=== PATIENT | female | born 1985 | race Caucasian/White ===

== ENCOUNTER → 2023-02-16 10:54 | Outpatient (BNVA) | payer OTHER, SELFPAY | PROVIDERS: Visit Provider Family Medicine | DX: R39.9 Unspecified symptoms and signs involving the genitourinary system (principal); N30.00 Acute cystitis without hematuria | CPT/HCPCS: 81000 ==

== ENCOUNTER 2023-05-10 08:00 | Oncology outpatient (recurring) (ONCR) | payer OTHER, SELFPAY ==
[2023-05-02 09:23] LABS: Basophils % 0.8 %; Eosinophils # 0.1 10^3/uL (0.0-0.8); Eosinophils % 1.4 %; Hematocrit 30.1 % (36-47); Lymphocytes # 1.6 10^3/uL (0.8-4.8); Lymphocytes % 31.1 %; Mean Corpuscular HGB Conc 28.6 g/dL (30-55); Mean Corpuscular Hemoglobin 20.4 pg (27-33); Mean Corpuscular Volume 71.5 fl (85-98); Monocytes # 0.5 10^3/uL (0.2-0.9); Neutrophils # 2.87 10^3/uL (1.8-7.7); Neutrophils % 57.3 %; Nucleated Red Blood Cells % 0 %; Platelet Count 289 10^3/cmm (157-399); Red Blood Count 4.21 10^6/uL (3.85-5.65); Red Cell Distribution Width 14.6 % (12.1-15.1); Reticulocyte % 0.9 % (0.5-2.0); White Blood Count 5.01 10^3/uL (3.29-11.43)
[2023-05-02 09:56] LABS: LAB Peripheral Smear Sent for Review
[2023-05-02 10:16] LABS: Alanine Aminotransferase 10 U/L (0-33); Albumin Level 4.1 g/dL (3.5-5.2); Alkaline Phosphatase 47 U/L (35-105); Anion Gap 13.1 (5-19); Aspartate Amino Transferase 10 U/L (0-32); Blood Urea Nitrogen 15 mg/dL (6-20); Calcium 8.8 mg/dL (8.5-10.5); Carbon Dioxide 24 mmol/L (22-29); Chloride 103 mmol/L (98-107); Creatinine Clr Calc Pharmacy 125.2221; Ferritin 8 ng/mL (15-150); Globulin 3.4 g/dL (1.3-4.6); Glomerular Filtration Rate 111.9 mL/min (90-130); Glucose 76 mg/dL (65-115); Iron 22 ug/dL (37-145); Lactate Dehydrogenase 174 U/L (135-214); Osmolality Calculated 282 mOsm/kg (285-295); Percent Saturation 5.5 % (20-50); Potassium 4.1 mmol/L (3.5-5.1); Sodium 136 mmol/L (136-145); Thyroid Stimulating Hormone 1.73 uIU/mL (0.27-4.20); Total Bilirubin 1.2 mg/dL (0.15-1.2); Total Iron Binding Capacity 395 mcg/dl; Total Protein 7.5 g/dL (6.6-8.7); Unsaturated Iron Binding 373 ug/dL (112-347); Vitamin B12 460 pg/mL (232-1245)
[2023-05-02 10:18] LABS: Folate Level 12.8 ng/mL (4.8-37.3); Hepatitis A Antibody IgM Non-Reactive (Nonreactive); Hepatitis B Core AB, Total Non-Reactive (Nonreactive); Hepatitis B Surface Antigen Non-Reactive (Nonreactive); Hepatitis C Virus Antibody Non-Reactive (Nonreactive)
[2023-05-02 10:54] LABS: Hepatitis B Surface AB > 1000.0 (11.5-1000)
[2023-05-02 10:56] LABS: Free T4 Free Thyroxine 1.23 ng/dL (0.82-1.77)
[2023-05-05 11:09] LABS: Methylmalonic Acid 92 nmol/L (87-318)
[2023-05-06 12:34] LABS: Copper Level 126 mcg/dL (70-175)
[2023-05-07 11:50] LABS: Soluble Transferrin Receptor 4.34 mg/L (0.76-1.76)
[2023-05-10 08:05] VITALS: BP 115/75; PULSE 94; RESP 16; TEMP 36.3; O2SAT 99
[2023-05-10] MEDS: ferumoxytol (NON-ESRD) 510 MG in sodium chloride 0.9% (100 ml) 100 ML 351 MG IV (08:29)
[2023-05-10] MEDS: sodium chloride 0.9% 250 ML IV (09:02)
[2023-05-10 09:20] VITALS: BP 92/62; PULSE 69; RESP 16; TEMP 36.3; O2SAT 98
== END 2023-05-26 23:59 | disposition home or self-care (01) ==
PROVIDERS: Internal Medicine; Visit Provider Internal Medicine Medical Oncology
DX: D50.9 Iron deficiency anemia, unspecified (principal)
CPT/HCPCS: 36415; 80053; 82525; 82607; 82728; 82746; 83540; 83550; 83615; 83921; 84238; 84439; 84443; 85025; 85045; 86705; 86706; 86709; 86803; 87340; 96365; 99204; J7050; Q0138

== ENCOUNTER → 2023-05-16 07:56 | Outpatient (BNVA) | payer OTHER, SELFPAY | PROVIDERS: Visit Provider Nurse Practitioner Women's Health | DX: N94.6 Dysmenorrhea, unspecified (principal); D25.9 Leiomyoma of uterus, unspecified | CPT/HCPCS: 76830 ==

== ENCOUNTER → 2023-08-02 07:24 | Outpatient (BNVA) | payer OTHER, SELFPAY | PROVIDERS: Visit Provider Internal Medicine | DX: D62 Acute posthemorrhagic anemia (principal); N92.4 Excessive bleeding in the premenopausal period; Z79.899 Other long term (current) drug therapy | CPT/HCPCS: 99213 ==

== ENCOUNTER 2023-08-19 08:30 | Oncology outpatient (recurring) (ONCR) | payer OTHER, SELFPAY ==
[2023-08-02 07:54] VITALS: BMI 28.3
[2023-08-02 08:02] VITALS: BP 110/70; PULSE 81; RESP 18; TEMP 36.7
[2023-08-02 08:47] LABS: Basophils % 0.5 %; Eosinophils # 0.1 10^3/uL (0.0-0.8); Eosinophils % 1.3 %; Lymphocytes # 1.7 10^3/uL (0.8-4.8); Lymphocytes % 27.4 %; Mean Corpuscular HGB Conc 29.4 g/dL (30-55); Mean Corpuscular Hemoglobin 23.6 pg (27-33); Mean Corpuscular Volume 80.3 fl (85-98); Mean Platelet Volume 10.1 fL (7.4-10.4); Monocytes # 0.6 10^3/uL (0.2-0.9); Monocytes % 8.9 %; Neutrophils # 3.87 10^3/uL (1.8-7.7); Neutrophils % 61.7 %; Nucleated Red Blood Cells % 0 %; Platelet Count 329 10^3/cmm (157-399); Red Blood Count 4.36 10^6/uL (3.85-5.65); Red Cell Distribution Width 17.2 % (12.1-15.1); White Blood Count 6.27 10^3/uL (3.29-11.43)
[2023-08-02 09:11] LABS: Alanine Aminotransferase 12 U/L (0-33); Albumin Level 4.1 g/dL (3.5-5.2); Alkaline Phosphatase 59 U/L (35-105); Anion Gap 13.7 (5-19); Aspartate Amino Transferase 12 U/L (0-32); Blood Urea Nitrogen 16 mg/dL (6-20); Calcium 8.6 mg/dL (8.5-10.5); Carbon Dioxide 26 mmol/L (22-29); Chloride 103 mmol/L (98-107); Creatinine Clr Calc Pharmacy 107.9573; Globulin 3.4 g/dL (1.3-4.6); Glomerular Filtration Rate 93.6 mL/min (90-130); Glucose 82 mg/dL (65-115); Osmolality Calculated 288 mOsm/kg (285-295); Potassium 3.7 mmol/L (3.5-5.1); Sodium 139 mmol/L (136-145); Total Bilirubin 0.7 mg/dL (0.15-1.2); Total Protein 7.5 g/dL (6.6-8.7)
[2023-08-02 16:20] LABS: Ferritin 8 ng/mL (15-150); Iron 17 ug/dL (37-145); Percent Saturation 4.3 % (20-50); Total Iron Binding Capacity 388 mcg/dl; Unsaturated Iron Binding 371 ug/dL (112-347)
[2023-08-06 08:09] VITALS: BP 117/75; PULSE 74; RESP 16; TEMP 36.6; O2SAT 100
[2023-08-06] MEDS: sodium chloride 0.9% 250 ML 75 ML IV (08:44)
[2023-08-06] MEDS: ferumoxytol (NON-ESRD) 510 MG in sodium chloride 0.9% (100 ml) 100 ML 351 MG IV (08:44)
[2023-08-06 09:19] VITALS: BP 100/66; PULSE 92; RESP 18; TEMP 36.3; O2SAT 98
[2023-08-09 13:14] LABS: Soluble Transferrin Receptor 1.61 mg/L (0.76-1.76)
[2023-08-19 08:45] VITALS: BP 107/75; PULSE 58; RESP 18; TEMP 36.5; O2SAT 100
[2023-08-19] MEDS: ferumoxytol (NON-ESRD) 510 MG in sodium chloride 0.9% (100 ml) 100 ML 351 MG IV (09:07)
== END 2023-08-25 23:59 | disposition home or self-care (01) ==
PROVIDERS: Internal Medicine; Visit Provider Internal Medicine Medical Oncology
DX: Z53.9 Procedure and treatment not carried out, unspecified reason (principal); D50.9 Iron deficiency anemia, unspecified; Z79.899 Other long term (current) drug therapy
CPT/HCPCS: 36415; 80053; 82728; 83540; 83550; 84238; 85025; 85045; 96365; J7050; Q0138

== ENCOUNTER 2023-09-17 08:10 | Oncology outpatient (recurring) (ONCR) | payer OTHER, SELFPAY ==
[2023-09-17] MEDS: ferumoxytol (NON-ESRD) 510 MG in sodium chloride 0.9% (100 ml) 100 ML 351 MG IV (08:50)
[2023-09-17 08:53] VITALS: BP 99/67; PULSE 75; RESP 16; TEMP 36.3; O2SAT 98
[2023-09-17 09:17] VITALS: BP 109/68; PULSE 74; RESP 18; TEMP 36.5; O2SAT 100
== END 2023-09-25 23:59 | disposition home or self-care (01) ==
LOC: ONCMED 08:10
PROVIDERS: Visit Provider Internal Medicine Medical Oncology
DX: D50.9 Iron deficiency anemia, unspecified; Z79.899 Other long term (current) drug therapy
CPT/HCPCS: 96365; Q0138

== ENCOUNTER 2023-12-06 08:27 | Oncology outpatient (recurring) (ONCR) | payer OTHER, SELFPAY ==
[2023-12-06 08:57] LABS: Basophils % 0.4 %; Eosinophils # 0.1 10^3/uL (0.0-0.8); Hematocrit 39.4 % (36-47); Lymphocytes # 1.4 10^3/uL (0.8-4.8); Lymphocytes % 18.9 %; Mean Corpuscular Hemoglobin 28.8 pg (27-33); Mean Platelet Volume 9.9 fL (7.4-10.4); Monocytes # 0.5 10^3/uL (0.2-0.9); Monocytes % 6.6 %; Neutrophils % 72.7 %; Nucleated Red Blood Cells % 0 %; Platelet Count 269 10^3/cmm (157-399); Red Blood Count 4.38 10^6/uL (3.85-5.65); Red Cell Distribution Width 12.2 % (12.1-15.1); White Blood Count 7.29 10^3/uL (3.29-11.43)
[2023-12-06 09:14] LABS: Alanine Aminotransferase 15 U/L (0-33); Albumin Level 4.1 g/dL (3.5-5.2); Alkaline Phosphatase 51 U/L (35-105); Anion Gap 12.4 (5-19); Aspartate Amino Transferase 12 U/L (0-32); Blood Urea Nitrogen 17 mg/dL (6-20); Calcium 8.4 mg/dL (8.5-10.5); Carbon Dioxide 27 mmol/L (22-29); Chloride 103 mmol/L (98-107); Creatinine Clr Calc Pharmacy 109.6802; Ferritin 137 ng/mL (15-150); Glomerular Filtration Rate 93.2 mL/min (90-130); Glucose 109 mg/dL (65-115); Iron 91 ug/dL (37-145); Osmolality Calculated 288 mOsm/kg (285-295); Percent Saturation 41.1 % (20-50); Potassium 4.4 mmol/L (3.5-5.1); Sodium 138 mmol/L (136-145); Total Iron Binding Capacity 221 mcg/dl; Total Protein 7.1 g/dL (6.6-8.7); Unsaturated Iron Binding 130 ug/dL (112-347)
== END 2023-12-26 23:59 | disposition home or self-care (01) ==
PROVIDERS: Nurse Practitioner Family; Visit Provider Internal Medicine Medical Oncology
DX: D50.9 Iron deficiency anemia, unspecified
CPT/HCPCS: 36415; 80053; 82728; 83540; 83550; 85025; 99213

== ENCOUNTER 2024-04-17 08:00 | Oncology outpatient (recurring) (ONCR) | payer OTHER, SELFPAY ==
[2024-04-10 08:35] LABS: Basophils % 0.2 %; Eosinophils # 0.2 10^3/uL (0.0-0.8); Eosinophils % 1.8 %; Hematocrit 37.6 % (36-47); Lymphocytes # 2.4 10^3/uL (0.8-4.8); Mean Corpuscular HGB Conc 33.2 g/dL (30-55); Mean Corpuscular Hemoglobin 29.1 pg (27-33); Mean Corpuscular Volume 87.6 fl (85-98); Monocytes # 0.7 10^3/uL (0.2-0.9); Monocytes % 7.5 %; Neutrophils # 5.78 10^3/uL (1.8-7.7); Neutrophils % 62.9 %; Nucleated Red Blood Cells % 0 %; Platelet Count 386 10^3/cmm (157-399); Red Blood Count 4.29 10^6/uL (3.85-5.65); Red Cell Distribution Width 12.7 % (12.1-15.1)
[2024-04-10 08:54] LABS: Alanine Aminotransferase 14 U/L (0-33); Albumin Level 3.8 g/dL (3.5-5.2); Alkaline Phosphatase 67 U/L (35-105); Anion Gap 14.2 (5-19); Aspartate Amino Transferase 8 U/L (0-32); Blood Urea Nitrogen 9 mg/dL (6-20); Calcium 8.7 mg/dL (8.5-10.5); Carbon Dioxide 26 mmol/L (22-29); Chloride 101 mmol/L (98-107); Creatinine Clr Calc Pharmacy 109.6802; Ferritin 64 ng/mL (15-150); Glomerular Filtration Rate 93.2 mL/min (90-130); Glucose 86 mg/dL (65-115); Iron 40 ug/dL (37-145); Osmolality Calculated 282 mOsm/kg (285-295); Percent Saturation 18.1 % (20-50); Potassium 4.2 mmol/L (3.5-5.1); Sodium 137 mmol/L (136-145); Total Bilirubin 0.5 mg/dL (0.15-1.2); Total Iron Binding Capacity 220 mcg/dl; Total Protein 6.8 g/dL (6.6-8.7); Unsaturated Iron Binding 180 ug/dL (112-347)
[2024-04-17 08:30] VITALS: BP 102/68; PULSE 73; RESP 17; TEMP 36.6; O2SAT 100
[2024-04-17] MEDS: ferumoxytol (NON-ESRD) 510 MG in sodium chloride 0.9% (100 ml) 100 ML 351 MG IV (08:45)
== END 2024-04-24 23:59 | disposition home or self-care (01) ==
PROVIDERS: Nurse Practitioner Family; Visit Provider Internal Medicine
DX: D50.9 Iron deficiency anemia, unspecified; Z79.899 Other long term (current) drug therapy; Z53.9 Procedure and treatment not carried out, unspecified reason
CPT/HCPCS: 36415; 80053; 82728; 83540; 83550; 85025; 96365; 99214; Q0138

== ENCOUNTER 2024-07-17 07:51 | Oncology outpatient (recurring) (ONCR) | payer OTHER, SELFPAY ==
[2024-07-17 08:15] LABS: Basophils % 0.6 %; Eosinophils # 0.1 10^3/uL (0.0-0.8); Eosinophils % 2.1 %; Hematocrit 38.2 % (36-47); Lymphocytes # 1.8 10^3/uL (0.8-4.8); Lymphocytes % 34.6 %; Mean Corpuscular HGB Conc 32.2 g/dL (30-55); Mean Corpuscular Hemoglobin 28.4 pg (27-33); Mean Corpuscular Volume 88.2 fl (85-98); Mean Platelet Volume 9.6 fL (7.4-10.4); Monocytes # 0.4 10^3/uL (0.2-0.9); Monocytes % 8.5 %; Neutrophils # 2.79 10^3/uL (1.8-7.7); Neutrophils % 53.8 %; Nucleated Red Blood Cells % 0 %; Platelet Count 297 10^3/cmm (157-399); Red Blood Count 4.33 10^6/uL (3.85-5.65); Red Cell Distribution Width 12.2 % (12.1-15.1); White Blood Count 5.18 10^3/uL (3.29-11.43)
[2024-07-17 08:36] LABS: Alanine Aminotransferase 14 U/L (0-33); Alkaline Phosphatase 49 U/L (35-105); Anion Gap 15.1 (5-19); Aspartate Amino Transferase 13 U/L (0-32); Blood Urea Nitrogen 13 mg/dL (6-20); Calcium 8.8 mg/dL (8.5-10.5); Carbon Dioxide 25 mmol/L (22-29); Chloride 103 mmol/L (98-107); Creatinine Clr Calc Pharmacy 109.7572; Ferritin 39 ng/mL (15-150); Glomerular Filtration Rate 93.2 mL/min (90-130); Glucose 83 mg/dL (65-115); Iron 62 ug/dL (37-145); Osmolality Calculated 287 mOsm/kg (285-295); Percent Saturation 28.5 % (20-50); Potassium 4.1 mmol/L (3.5-5.1); Sodium 139 mmol/L (136-145); Total Bilirubin 0.8 mg/dL (0.15-1.2); Total Iron Binding Capacity 217 mcg/dl; Unsaturated Iron Binding 155 ug/dL (112-347)
== END 2024-07-25 23:59 | disposition home or self-care (01) ==
PROVIDERS: Nurse Practitioner Family; Visit Provider Internal Medicine
DX: Z53.9 Procedure and treatment not carried out, unspecified reason; D50.9 Iron deficiency anemia, unspecified; K59.00 Constipation, unspecified; Z79.899 Other long term (current) drug therapy
CPT/HCPCS: 36415; 80053; 82728; 83540; 83550; 85025; 99213

== ENCOUNTER 2024-10-16 08:20 | Oncology outpatient (recurring) (ONCR) | payer OTHER, SELFPAY ==
[2024-10-16 09:14] LABS: Hematocrit 37.9 % (36-47); Hemoglobin 12.10 g/dL (11.27-16.99); Mean Corpuscular HGB Conc 31.9 g/dL (30-55); Mean Corpuscular Hemoglobin 28.0 pg (27-33); Mean Corpuscular Volume 87.7 fl (85-98); Nucleated Red Blood Cells % 0 %; Platelet Count 300 10^3/cmm (157-399); Red Blood Count 4.32 10^6/uL (3.85-5.65); White Blood Count 8.32 10^3/uL (3.29-11.43)
[2024-10-16 09:38] LABS: Alanine Aminotransferase 7 U/L (0-33); Albumin Level 4.3 g/dL (3.5-5.2); Alkaline Phosphatase 59 U/L (35-105); Anion Gap 16.2 (5-19); Aspartate Amino Transferase 10 U/L (0-32); Blood Urea Nitrogen 13 mg/dL (6-20); Calcium 9.0 mg/dL (8.5-10.5); Carbon Dioxide 25 mmol/L (22-29); Chloride 103 mmol/L (98-107); Creatinine Clr Calc Pharmacy 109.2061; Ferritin 8 ng/mL (15-150); Globulin 3.3 g/dL (1.3-4.6); Glucose 80 mg/dL (65-115); Iron 30 ug/dL (37-145); Osmolality Calculated 289 mOsm/kg (285-295); Potassium 4.2 mmol/L (3.5-5.1); Sodium 140 mmol/L (136-145); Total Iron Binding Capacity 302 mcg/dl; Total Protein 7.6 g/dL (6.6-8.7); Unsaturated Iron Binding 272 ug/dL (112-347)
== END 2024-10-25 23:59 | disposition home or self-care (01) ==
PROVIDERS: Nurse Practitioner Family; Visit Provider Internal Medicine
DX: D50.9 Iron deficiency anemia, unspecified (principal); K59.00 Constipation, unspecified; Z79.899 Other long term (current) drug therapy
CPT/HCPCS: 36415; 80053; 82728; 83540; 83550; 85025; 99214

== ENCOUNTER 2025-01-25 09:21 | Oncology outpatient (recurring) (ONCR) | payer OTHER, SELFPAY | END 2025-02-24 23:59 | disposition home or self-care (01) | LOC: SLEEP 09:24 → ONCMED 10:26 | PROVIDERS: Referring Provider Internal Medicine; Visit Provider Internal Medicine Pulmonary Disease | DX: R40.0 Somnolence (principal) | CPT/HCPCS: G0399 ==